=== PATIENT | male | born 1970 | race Caucasian/White ===

== ENCOUNTER 2018-05-25 11:28 | Emergency (ER) | payer OTHER ==
[~2018-05-25] VITALS: Ht 185.4 cm; Wt 82.6 kg
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
[2018-05-25] MEDS ORDERED: PROPOFOL 10 MG/ML (20ML) VIAL. IV ONE (13:15)
[2018-05-25] MEDS ORDERED: MORPHINE SULFATE 4 MG/ML VIAL. IV ONE (13:15)
--- NOTE | 2018-05-25 13:16 | RAD ---
Three-view left shoulder dated 05/25/2018. No comparison available. Clinical data indication: Pain after injury. FINDINGS: 3 views left shoulder show anterior dislocation of the humeral head relative to the glenoid. There is a Hill-Sachs impaction fracture of the posterior lateral humeral head.. No definite glenoid fracture. Osseous structures otherwise intact. IMPRESSION: Anterior shoulder dislocation. Electronically signed by: Phil Gan MD (05/25/2018 1:12 PM) [id number]
[2018-05-25 13:31] VITALS: BP 126/78
--- NOTE | 2018-05-25 14:05 | RAD ---
2 view study of the left shoulder Clinical indications: Post reduction. COMPARISON: Same day. IMPRESSION: Previously seen glenohumeral joint dislocation has been reduced. No acute fracture is evident. Electronically signed by: Fermín Garza MD (05/25/2018 2:02 PM) [facility]
[2018-05-25] MEDS ORDERED: ONDANSETRON PF 4 MG/2 ML VIAL. ONE (14:37)
[2018-05-25] MEDS ORDERED: ONDANSETRON PF 4 MG/2 ML VIAL. IV ONE (14:45)
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
--- NOTE | 2018-05-25 16:03 | PHYS DOC ---
MODERATE SEDATION ASSESSMENT RISKS/ALTERNATIVES Risks/Alternatives Risks and alternatives of this type of sedation and procedure discussed with: RISK/ALTERNATIVES: Patient H & P ON CHART H & P H & P on chart and reviewed for co-morbid conditions and appropriate labs. H&P ON CHART: Yes STATUS PREG STATUS ASSESSED: N/A MEDS/ALLERGIES REVIEWED Meds/Allergies Reviewed Medications and Allergies including time and route of recently administered narcotics and sedatives. MEDS/ALLERGIES REVIEWED: Yes ASA RATING ASA RATING: II AIRWAY ASSESSMENT Airway Assessment Airway patency, oral function limitations, presence of caps, crowns, dentures, partials, and ability to extend neck assessed. AIRWAY ASSESSMENT: Yes MALLAMPATI SCORE MALLAMPATI SCORE: I PRE-SEDATION ASSESSMENT PRE-SEDATION ASSESSMENT: Yes ROSALIA PINEDO MD May 25, 2018 16:03
== END 2018-05-25 14:40 | disposition home or self-care (01) ==
LOC: ER 11:28 → EEVIPCON 11:28 → ER 14:40
DX: S43.015A Anterior dislocation of left humerus, initial encounter (principal); K21.9 Gastro-esophageal reflux disease without esophagitis; Z88.8 Allergy status to other drugs, medicaments and biological substances; Y08.89XA Assault by other specified means, initial encounter; Y93.89 Activity, other specified; Y92.148 Other place in prison as the place of occurrence of the external cause; Y99.8 Other external cause status
CPT/HCPCS: 23650; 70450; 72125; 73030; 96374; 96375; 99285; J2270; J2405; J2704